=== PATIENT | female | born 1970 | race Caucasian/White ===

== ENCOUNTER 2016-05-18 17:33 | Emergency (ER) | payer MEDICAID ==
--- NOTE | 2016-05-24 21:28 | ER ---
ADMIT: 05/18/2016 RM/LOC: ER [facility] MR#: [id number] [facility] [address] [id number] LEONIE MCDONNELL [facility] [place] [address] Emergency Room Report SEX: F AGE: 45 : 1970 DATE: 05/18/2016 ADDENDUM: CHIEF COMPLAINT: Abdominal pain. HISTORY OF PRESENT ILLNESS: This is a 45-year-old female who developed this pain about 2 days ago. She was seen at Urgent Care. Did show that she had some hematuria at that time. Told her she could be a possible kidney stone. She went home. Today, she presents with increased pain. She was seen initially by Dr. Freeman. Please see his T-sheet for his full physical exam, past medical history, review of systems. EMERGENCY DEPARTMENT COURSE: I followed up with a CT scan. It did show a slightly distended bladder and a moderate amount of stool. I told her that I thought she was probably more constipated than anything because she cannot remember when she had her last bowel movement. She does not think she is constipated because of the distended bladder. I am sending her home with Macrobid per Dr. Posey's recommendations. She wants something for pain and nausea to go home with. I did give her Proctor and Phenergan but did warn her that Proctor can make her constipation worse if she already has this issue. Recommended that she take a stool softener. CLINICAL IMPRESSION: 1. Left lower quadrant abdominal pain. 2. Bladder distention. MEAGAN Coyne / Bryan Freeman MD / britney JOB #: [id number] CC: Bryan Freeman MD, Attending Physician Pratik Mcduffie MD, Family Physician
== END 2016-05-18 21:15 | disposition home or self-care (01) ==
LOC: ER 17:33
DX: R10.32 Left lower quadrant pain (principal); N32.89 Other specified disorders of bladder; F32.9 Major depressive disorder, single episode, unspecified; Z90.710 Acquired absence of both cervix and uterus; Z79.899 Other long term (current) drug therapy